=== PATIENT | female | born 1950 | race Caucasian/White ===

== ENCOUNTER → 2018-04-29 | Outpatient (CLI) | payer MEDICARE, OTHER ==
--- NOTE | 2018-04-30 09:02 | RADIOLOGY REPORT (SQ) ---
EXAM DESCRIPTION: PET CT SKULL/THIGH COMPLETED DATE/TIME: 04/29/2018 6:53 pm REASON FOR STUDY: RT LUNG MASS R91.8 OTHER NONSPECIFIC ABNORMAL FINDING OF LUNG FIELD COMPARISON: Outside CT abdomen pelvis 10/17/2017 Outside MRI thoracic spine 04/02/2018 Outside two-view chest 04/13/[address] chest 04/17/2018 RADIONUCLIDE AND DOSE: 10.8 mCi F18 FDG The route of agent administration: Intravenous FASTING BLOOD SUGAR: 100 mg/dl CONTRAST TYPE AND DOSE: No CT contrast given. TECHNIQUE: Blood glucose level was verified. Above dose of FDG was injected intravenously. 2-D seg mented attenuation correction images were obtained from the base of the skull to the midthighs. Nonc ontrast CT images were obtained for attenuation correction and fusion with emission images. CT image s were performed without oral or intravenous contrast and are not sensitive for parenchymal lesions. A series of overlapping emission PET images were obtained. Images reviewed and manipulated at [facility] work station by the radiologist. Images stored on PACS. LIMITATIONS: None. FINDINGS: HEAD AND NECK: No areas of abnormal metabolic activity in the soft tissues of the head and neck. CHEST: In the posterior aspect right upper lobe, hypermetabolic spiculated nodule is present worrisom e for malignancy. This measures about 2.2 x 1.4 cm on axial image 57, with SUV of cc. Lungs are otherwise hyperinflated and hyperlucent from obstructive disease, with non metabolic left a pical pleural-parenchymal scarring. Noncalcified granulomas are present in the medial posterior righ t lower lobe on axial image 78-93. ABDOMEN AND PELVIS: No areas of abnormal metabolic activity in the abdomen or pelvis. Expected physi ologic activity is present in the genitourinary system and bowel. PROXIMAL LOWER EXTREMITIES: No areas of abnormal metabolic activity in the soft tissues of the lower extremities. BONES: No abnormal metabolic activity in the visualized skeleton worrisome for metastatic disease. ADDITIONAL CT FINDINGS: Benign non metabolic cyst left lobe liver, clips post cholecystectomy. Post hysterectomy. Thoracic compression fractures without significant increased metabolic activity. OTHER: Liver background activity 2.6 SUV. Blood pool background activity 1.6 SUV IMPRESSION: Hypermetabolic solitary pulmonary nodule worrisome for malignancy, posterior right upper lobe TECHNICAL DOCUMENTATION: JOB ID: [id number] [employer]- All Rights Reserved Reading location - IP[facility]workstation name: [email or web address]
== END ==
LOC: RAD 16:08
PROVIDERS: ATTEND Physician Assistant
DX: R91.1 Solitary pulmonary nodule (principal)
CPT/HCPCS: 78815; A9552